=== PATIENT | male | born 1950 | race Caucasian/White ===

== ENCOUNTER 2025-05-03 13:17 | Emergency (ER) | payer MEDICARE ==
[~2025-05-03] VITALS: Ht 167.6 cm; Wt 79.3 kg
[2025-05-03 13:33] VITALS: BP 174/83; TEMP 36.8; O2SAT 74
[2025-05-03 13:34] VITALS: PULSE 94; RESP 16; O2SAT 99
[2025-05-03 15:42] LABS: BASOPHILS % 0.6 % (0.0-2.0); EOSINOPHILS % 2.3 % (0.0-5.0); HEMATOCRIT. 31.8 % (42.0-52.0); HEMOGLOBIN. 10.6 g/dL (14.0-18.0); LYMPHOCYTES % 23.0 % (20.0-50.0); MEAN PLATELET VOLUME 7.8 fl (7.4-10.4); MONOCYTES % 9.5 % (2.0-8.0); NEUTROPHILS % 64.6 % (40.0-76.0); PLATELET 156 x1000/uL (130-400); RED BLOOD CELL COUNT 3.52 mill/uL (4.7-6.1); RED CELL DISTRIBUTION WIDTH 15.8 % (11.6-14.6)
[2025-05-03 16:00] LABS: CREATININE 1.1 mg/dL (0.6-1.3); UREA NITROGEN BLOOD 24 mg/dL (9-23)
== END 2025-05-03 21:37 | disposition home or self-care (01) ==
LOC: ER 13:17
DX: M79.89 Other specified soft tissue disorders (principal); Z90.49 Acquired absence of other specified parts of digestive tract
CPT/HCPCS: 36415; 80048; 85025; 93970; 99284